=== PATIENT | female | born 1990 | race Asian ===

== ENCOUNTER → 2020-11-26 | Outpatient (CLI) | payer MEDICAID ==
--- NOTE | 2020-11-26 13:57 | RAD ---
EXAM: Pelvic sonogram. HISTORY: Encounter for .. TECHNIQUE: Sonographic imaging of the pelvis was performed. COMPARISON: None. FINDINGS: The uterus measures 11.0 x 8.0 x 8.8 cm. There is a single intrauterine gestational sac wit h pole. The crown-rump length is 3.8 cm, corresponding with a gestational age of 10 weeks and 5 days. The maternal ovaries are normal in size and demonstrate normal blood flow. The gestation al sac is normal in configuration and location. The cervix is closed and measures 4.0 cm in length. T he heart rate is normal at 163 bpm. IMPRESSION: Single intrauterine fetus with normal heart rate and gestational age patient ultrasound m easurements of 10 weeks and 5 days. Electronically signed by: Whitley Norton MD (11/26/2020 1:55 PM) [id number]
== END ==
LOC: US 12:29
PROVIDERS: ATTEND Obstetrics & Gynecology
DX: O00.01 Abdominal pregnancy with intrauterine pregnancy (principal); Z3A.10 10 weeks gestation of pregnancy
CPT/HCPCS: 76801